=== PATIENT | female | born 1975 | race Caucasian/White ===

== ENCOUNTER 2017-01-19 11:00 | Outpatient (CLI) | payer OTHER ==
[~2017-01-19 11:00] MED LIST: CLEOCIN150 MG PO; DEXILANT60 MG PO; NORCO1 TA1 PO
--- NOTE | 2017-01-19 11:22 | DIAGNOSTIC IMAGING REPORT ---
PROCEDURE: XR CHEST 2 VIEW INDICATION: COUGH TECHNIQUE: PA and lateral view. COMPARISON: Chest x-ray 10/26/2011. FINDINGS: Lungs are clear. Cardiovascular structures are normal. Left nipple piercing device. Bony thorax is unremarkable. IMPRESSION: 1. Negative chest.
== END 2017-01-19 23:00 | disposition home or self-care (01) ==
LOC: XR SRH 11:00
DX: R05 Cough (principal)